=== PATIENT | male | born 1995 | race Caucasian/White ===

== ENCOUNTER 2016-10-21 08:39 | Emergency (ER) | payer BC, SELFPAY | END 2016-10-21 09:45 | disposition home or self-care (01) | LOC: ER1 08:39 | DX: L23.7 Allergic contact dermatitis due to plants, except food (principal); Z88.1 Allergy status to other antibiotic agents | CPT/HCPCS: 99282 ==

== ENCOUNTER 2016-12-22 04:43 | Emergency (ER) | payer BC, SELFPAY ==
[2016-12-22 06:06] LABS: RED BLOOD COUNT 5.75 M/UL (4.20-5.50); WHITE BLOOD COUNT 10.4 K/UL (4.5-11.0)
[2016-12-22 06:24] LABS: BUN/CREATININE RATIO 11 (0-10)
== END 2016-12-22 07:20 | disposition home or self-care (01) ==
LOC: ER1 04:43
PROVIDERS: Emergency Medicine
DX: N13.2 Hydronephrosis with renal and ureteral calculous obstruction (principal); N21.0 Calculus in bladder; Z88.1 Allergy status to other antibiotic agents
CPT/HCPCS: 36415; 80053; 81001; 82150; 83690; 85025; 87086; 96361; 96374; 96375; 99284; J1885; J2270; J2405; J7030

== ENCOUNTER 2020-09-15 18:21 | Emergency (ER) | payer OTHER ==
[~2020-09-15 18:21] MED LIST: FLOMAX0.4 MG PO; NORCO 5-325 TA1 EACH PO; NORCO 7.5-3251 EACH PO; TORADOL 10 MG T10 MG PO
[2020-09-15] MEDS ORDERED: NAPROSYN500 MG PO (19:27)
== END 2020-09-15 19:26 | disposition home or self-care (01) ==
LOC: ER1 18:21
DX: S93.401A Sprain of unspecified ligament of right ankle, initial encounter (principal); F17.200 Nicotine dependence, unspecified, uncomplicated; Z87.81 Personal history of (healed) traumatic fracture; Z88.1 Allergy status to other antibiotic agents; Z87.442 Personal history of urinary calculi; W01.0XXA Fall on same level from slipping, tripping and stumbling without subsequent striking against object, initial encounter; Y92.89 Other specified places as the place of occurrence of the external cause; Y99.0 Civilian activity done for income or pay
CPT/HCPCS: 73610; 99283

== ENCOUNTER → 2020-10-19 | Outpatient (CLI) | payer OTHER ==
[~2020-10-19] MED LIST changes: +NAPROSYN500 MG PO
== END ==
LOC: KOH-I 09:01
DX: S82.831D Other fracture of upper and lower end of right fibula, subsequent encounter for closed fracture with routine healing (principal); X58.XXXD Exposure to other specified factors, subsequent encounter
CPT/HCPCS: 73610

== ENCOUNTER → 2020-11-06 | Outpatient (CLI) | payer OTHER | LOC: KOH-I 08:36 | DX: S82.831D Other fracture of upper and lower end of right fibula, subsequent encounter for closed fracture with routine healing (principal); X58.XXXD Exposure to other specified factors, subsequent encounter; M79.89 Other specified soft tissue disorders | CPT/HCPCS: 73610 ==

== ENCOUNTER → 2021-09-06 | Outpatient (CLI) | payer BC, OTHER ==
[2021-09-06 13:48] LABS: HEMOGLOBIN 17.2 gm/dl (14.0-17.5); RED BLOOD COUNT 5.75 M/UL (4.20-5.50); WHITE BLOOD COUNT 10.6 K/UL (4.5-11.0)
[2021-09-07 07:11] LABS: A/G RATIO 1.8 (1.2-2.2); BILIRUBIN, TOTAL 0.4 mg/dL (0.0-1.2); CALCIUM, SERUM 10.2 mg/dL (8.7-10.2); CREATININE, SERUM 1.03 mg/dL (0.76-1.27); GLOBULIN, TOTAL 2.6 g/dL (1.5-4.5); POTASSIUM, SERUM 4.5 mmol/L (3.5-5.2); PROTEIN, TOTAL, SERUM 7.4 g/dL (6.0-8.5)
== END ==
LOC: LAB 12:43
PROVIDERS: Nurse Practitioner Family
DX: R10.9 Unspecified abdominal pain (principal); R14.3 Flatulence
CPT/HCPCS: 36415; 74018; 80053; 85025; 87505